=== PATIENT | female | born 2005 | race Caucasian/White ===

== ENCOUNTER 2023-12-10 18:04 | Observation (INO) | payer BC ==
[~2023-12-10] VITALS: Ht 152.4 cm; Wt 45.4 kg
[2023-12-10] MEDS ORDERED: ONDANSETRON 4MG 2ML VIAL IV ONE (20:05)
[2023-12-10] MEDS: ONDANSETRON 4MG 2ML VIAL IV ONE ×2 (20:31→22:01)
[2023-12-10] MEDS: NS 1,000 ML IV ONE (20:31)
[2023-12-10 20:47] LABS: BASO % 0.1 % (0.0-1.0); HEMATOCRIT 43.5 % (36.0-47.0); HEMOGLOBIN 15.6 g/dl (12.0-15.5); LYMPH # 0.7 10^3/uL (1.5-5.0); LYMPH % 4.6 % (24.0-44.0); MEAN CORPUSCULAR HEMOGLOBIN 29.7 pg (27.0-33.0); MEAN CORPUSCULAR HGB CONC 35.9 g/dl (32.0-36.5); MEAN CORPUSCULAR VOLUME 82.9 fl (80.0-96.0); MONO # 0.6 10^3/uL (0.0-0.8); MONO % 3.9 % (2.0-8.0); NEUTROPHILS # 13.9 10^3/uL (1.5-8.5); NEUTROPHILS % 90.9 % (36.0-66.0); PLATELET COUNT, AUTOMATED 328 10^3/uL (150-450); RED BLOOD COUNT 5.25 10^6/uL (4.00-5.40); WHITE BLOOD COUNT 15.3 10^3/uL (4.0-10.0)
[2023-12-10 21:26] LABS: HCG, SERUM QUALITATIVE NEGATIVE (NEGATIVE)
[2023-12-10 21:39] LABS: LIPASE 22 U/L (12-53)
[2023-12-10 21:41] LABS: ALBUMIN 5.2 G/DL (3.2-5.2); ALKALINE PHOSPHATASE 105 U/L (46-116); ALT/SGPT 64 U/L (7.0-40); AST/SGOT 48 U/L (<34); BILIRUBIN,DIRECT 0.6 MG/DL (<0.4); BILIRUBIN,TOTAL 1.8 MG/DL (0.3-1.2); BLOOD UREA NITROGEN 16 MG/DL (9-23); CALCIUM LEVEL 10.9 MG/DL (8.5-10.1); CARBON DIOXIDE LEVEL 24 MMOL/L (20-31); CHLORIDE LEVEL 103 MMOL/L (98-107); GLUCOSE, FASTING 134 MG/DL (60-100); POTASSIUM SERUM 4.1 MMOL/L (3.5-5.1); SODIUM LEVEL 141 MMOL/L (136-145); TOTAL PROTEIN 8.2 G/DL (5.7-8.2)
[2023-12-10] MEDS ORDERED: ISOVUE-370 76% 100ML VIAL As Ordered ONE (21:57)
[2023-12-10] MEDS: KETOROLAC 30 MG/ML 1ML VIAL IV ONE (22:01)
[2023-12-10] MEDS ORDERED: HOME MED LIST COMPLETE! XX SCH (23:30)
[2023-12-10] MEDS: PROMETHAZINE 25MG/ML 1ML VIAL IV ONE (23:31)
[2023-12-11] MEDS ORDERED: ACETAMINOPHEN TAB 650MG DOSE (2X325MG) PO PRN (02:55)
[2023-12-11] MEDS ORDERED: KETOROLAC 30 MG/ML 1ML VIAL IV PRN (02:55)
[2023-12-11] MEDS: LR 1,000 ML IV SCH (04:26)
[2023-12-11 04:27] VITALS: BP 130/72; TEMP 98; O2SAT 98
[2023-12-11] MEDS: MAALOX 30 ML SUSP *UDC PO PRN (05:06)
[2023-12-11] MEDS: ONDANSETRON 4MG 2ML VIAL IV PRN (05:06)
[2023-12-11 07:36] VITALS: BP 140/71; TEMP 98; O2SAT 100
[2023-12-11 08:29] LABS: BASO % 0.1 % (0.0-1.0); HEMATOCRIT 41.5 % (36.0-47.0); HEMOGLOBIN 14.4 g/dl (12.0-15.5); LYMPH # 1.1 10^3/uL (1.5-5.0); MEAN CORPUSCULAR HEMOGLOBIN 29.3 pg (27.0-33.0); MEAN CORPUSCULAR HGB CONC 34.7 g/dl (32.0-36.5); MEAN CORPUSCULAR VOLUME 84.3 fl (80.0-96.0); MONO % 8.1 % (2.0-8.0); NEUTROPHILS # 10.1 10^3/uL (1.5-8.5); NEUTROPHILS % 82.5 % (36.0-66.0); PLATELET COUNT, AUTOMATED 312 10^3/uL (150-450); RED BLOOD COUNT 4.92 10^6/uL (4.00-5.40); WHITE BLOOD COUNT 12.2 10^3/uL (4.0-10.0)
[2023-12-11 09:00] LABS: ALBUMIN 4.9 G/DL (3.2-5.2); ALKALINE PHOSPHATASE 92 U/L (46-116); ALT/SGPT 49 U/L (7.0-40); AST/SGOT 32 U/L (<34); BILIRUBIN,TOTAL 1.6 MG/DL (0.3-1.2); BLOOD UREA NITROGEN 16 MG/DL (9-23); CALCIUM LEVEL 10.3 MG/DL (8.5-10.1); CARBON DIOXIDE LEVEL 24 MMOL/L (20-31); CHLORIDE LEVEL 104 MMOL/L (98-107); CREATININE FOR GFR 0.81 MG/DL (0.55-1.30); GLUCOSE, FASTING 110 MG/DL (60-100); MAGNESIUM LEVEL 2.2 MG/DL (1.8-2.4); POTASSIUM SERUM 3.6 MMOL/L (3.5-5.1); SODIUM LEVEL 141 MMOL/L (136-145); TOTAL PROTEIN 7.6 G/DL (5.7-8.2)
[2023-12-11] MEDS: METOCLOPRAMIDE INJ 10MG/2ML VIAL IV PRN (09:06)
[2023-12-11] MEDS ORDERED: ONDA4TAB6 PO (12:10)
[2023-12-11 16:00] VITALS: BP 128/64; TEMP 97.6; O2SAT 100
== END 2023-12-11 16:38 | disposition home or self-care (01) ==
LOC: M ED 18:04 → M ED INP 18:05 → M PCU 12-11 04:25
PROVIDERS: ADMIT Internal Medicine; ATTEND Internal Medicine
DX: R11.2 Nausea with vomiting, unspecified (principal); R10.9 Unspecified abdominal pain; F99 Mental disorder, not otherwise specified; Z62.810 Personal history of physical and sexual abuse in childhood; F17.290 Nicotine dependence, other tobacco product, uncomplicated; F12.10 Cannabis abuse, uncomplicated
CPT/HCPCS: 36415; 74177; 80048; 80053; 80076; 83690; 83735; 84703; 85025; 93041; 96361; 96374; 96375; 96376; 99285; J1885; J2405; J2550; J2765; Q9967

== ENCOUNTER 2023-12-13 11:44 | Emergency (ER) | payer BC, SELFPAY ==
[~2023-12-13] VITALS: Ht 152.4 cm; Wt 45.4 kg
[~2023-12-13 11:44] MED LIST: ONDA4TAB6 PO
[2023-12-13 13:35] LABS: BASO % 0.3 % (0.0-1.0); HEMATOCRIT 44.6 % (36.0-47.0); HEMOGLOBIN 15.8 g/dl (12.0-15.5); LYMPH # 1.7 10^3/uL (1.5-5.0); LYMPH % 14.5 % (24.0-44.0); MEAN CORPUSCULAR HEMOGLOBIN 29.4 pg (27.0-33.0); MEAN CORPUSCULAR HGB CONC 35.4 g/dl (32.0-36.5); MEAN CORPUSCULAR VOLUME 83.1 fl (80.0-96.0); MONO # 1.1 10^3/uL (0.0-0.8); MONO % 9.6 % (2.0-8.0); NEUTROPHILS # 8.7 10^3/uL (1.5-8.5); NEUTROPHILS % 75.3 % (36.0-66.0); PLATELET COUNT, AUTOMATED 309 10^3/uL (150-450); RED BLOOD COUNT 5.37 10^6/uL (4.00-5.40); WHITE BLOOD COUNT 11.5 10^3/uL (4.0-10.0)
[2023-12-13] MEDS: NS 1,000 ML IV ONE (13:54)
[2023-12-13] MEDS: ONDANSETRON 4MG 2ML VIAL IV ONE (13:55)
[2023-12-13] MEDS: KETOROLAC 30 MG/ML 1ML VIAL IV ONE (13:57)
[2023-12-13] MEDS: FAMOTIDINE 20MG/2ML VIAL IVP ONE (13:58)
[2023-12-13 14:09] LABS: ALBUMIN 5.2 G/DL (3.2-5.2); BILIRUBIN,DIRECT 0.9 MG/DL (<0.4); BILIRUBIN,TOTAL 3.2 MG/DL (0.3-1.2); TOTAL PROTEIN 8.1 G/DL (5.7-8.2)
[2023-12-13] MEDS ORDERED: ISOVUE-370 76% 100ML VIAL As Ordered ONE (14:39)
[2023-12-13 18:07] VITALS: BP 129/73; TEMP 97.8; O2SAT 98
== END 2023-12-13 18:12 | disposition left against medical advice (07) ==
LOC: M ED 11:44
DX: R10.9 Unspecified abdominal pain (principal); F17.210 Nicotine dependence, cigarettes, uncomplicated; Z53.9 Procedure and treatment not carried out, unspecified reason
CPT/HCPCS: 74177; 74181; 80047; 80076; 83690; 84702; 85025; 96361; 96374; 96375; 99284; J1885; J2405; Q9967; S0028

== ENCOUNTER 2024-01-26 19:39 | Emergency (ER) | payer SELFPAY ==
[~2024-01-26] VITALS: Ht 152.4 cm; Wt 41.7 kg
[2024-01-26 19:39] VITALS: TEMP 97.9
[~2024-01-26 19:39] MED LIST changes: +ONDA-282 PO; -ONDA4TAB6 PO
[2024-01-26 20:36] LABS: BASO % 0.1 % (0.0-1.0); HEMATOCRIT 43.6 % (36.0-47.0); HEMOGLOBIN 15.4 g/dl (12.0-15.5); LYMPH % 13.4 % (24.0-44.0); MEAN CORPUSCULAR HEMOGLOBIN 29.5 pg (27.0-33.0); MEAN CORPUSCULAR HGB CONC 35.3 g/dl (32.0-36.5); MEAN CORPUSCULAR VOLUME 83.5 fl (80.0-96.0); MONO # 0.8 10^3/uL (0.0-0.8); MONO % 10.7 % (2.0-8.0); NEUTROPHILS # 5.9 10^3/uL (1.5-8.5); NEUTROPHILS % 75.7 % (36.0-66.0); PLATELET COUNT, AUTOMATED 315 10^3/uL (150-450); RED BLOOD COUNT 5.22 10^6/uL (4.00-5.40); WHITE BLOOD COUNT 7.8 10^3/uL (4.0-10.0)
[2024-01-26 20:58] LABS: ALBUMIN 4.5 G/DL (3.2-5.2); BILIRUBIN,DIRECT 0.7 MG/DL (<0.4); BILIRUBIN,TOTAL 2.8 MG/DL (0.3-1.2); TOTAL PROTEIN 7.3 G/DL (5.7-8.2)
[2024-01-26 21:00] VITALS: BP 115/72
[2024-01-26] MEDS: FAMOTIDINE 20MG/2ML VIAL IVP ONE (21:35)
[2024-01-26] MEDS: KETOROLAC 30 MG/ML 1ML VIAL IV ONE (21:35)
[2024-01-26] MEDS ORDERED: ISOVUE-370 76% 100ML VIAL As Ordered ONE (21:35)
[2024-01-26] MEDS: ONDANSETRON 4MG 2ML VIAL IV ONE (21:46)
[2024-01-26 21:59] LABS: AMPHETAMINES LEVEL URINE NEGATIVE (NEGATIVE); BARBITURATES URINE NEGATIVE (NEGATIVE); BENZODIAZEPINES URINE NEGATIVE (NEGATIVE); COCAINE METABOLITE URINE NEGATIVE (NEGATIVE); METHADONE URINE NEGATIVE (NEGATIVE); OPIATES URINE NEGATIVE (NEGATIVE); PHENCYCLIDINE URINE NEGATIVE (NEGATIVE)
[2024-01-26 22:01] LABS: CANNABINOIDS URINE POSITIVE (NEGATIVE)
[2024-01-26] MEDS ORDERED: ANALGESIC BALM CRM 3OZ TOP PRN (22:05)
[2024-01-26] MEDS: HALOPERIDOL LACTATE 5MG/ML VIAL IV ONE (22:18)
[2024-01-26 22:54] VITALS: O2SAT 98
== END 2024-01-26 23:10 | disposition left against medical advice (07) ==
LOC: M ED 19:39
DX: F12.188 Cannabis abuse with other cannabis-induced disorder (principal); Z53.9 Procedure and treatment not carried out, unspecified reason
CPT/HCPCS: 74177; 80047; 80076; 80307; 81001; 83690; 84702; 85025; 87086; 96374; 96375; 99284; J1630; J1885; J2405; Q9967; S0028

== ENCOUNTER 2024-02-14 18:03 | Emergency (ER) | payer SELFPAY ==
[~2024-02-14] VITALS: Ht 152.4 cm; Wt 41.4 kg
[2024-02-14 18:59] LABS: BASO % 0.4 % (0.0-1.0); EOS # 0.2 10^3/uL (0.0-0.5); EOS % 1.8 % (0.0-3.0); HEMATOCRIT 47.4 % (36.0-47.0); HEMOGLOBIN 16.9 g/dl (12.0-15.5); LYMPH % 20.9 % (24.0-44.0); MEAN CORPUSCULAR HEMOGLOBIN 29.8 pg (27.0-33.0); MEAN CORPUSCULAR HGB CONC 35.7 g/dl (32.0-36.5); MEAN CORPUSCULAR VOLUME 83.5 fl (80.0-96.0); MONO # 1.1 10^3/uL (0.0-0.8); MONO % 11.7 % (2.0-8.0); NEUTROPHILS # 6.1 10^3/uL (1.5-8.5); PLATELET COUNT, AUTOMATED 392 10^3/uL (150-450); RED BLOOD COUNT 5.68 10^6/uL (4.00-5.40); WHITE BLOOD COUNT 9.3 10^3/uL (4.0-10.0)
[2024-02-14 19:20] LABS: ALBUMIN 4.7 G/DL (3.2-5.2); BILIRUBIN,DIRECT 0.6 MG/DL (<0.4); BILIRUBIN,TOTAL 2.8 MG/DL (0.3-1.2); TOTAL PROTEIN 8.1 G/DL (5.7-8.2)
[2024-02-14] MEDS ORDERED: ISOVUE-370 76% 100ML VIAL As Ordered ONE (19:33)
[2024-02-14] MEDS: KETOROLAC 30 MG/ML 1ML VIAL IV ONE (19:34)
[2024-02-14 21:46] VITALS: BP 126/85; TEMP 98.8; O2SAT 98
[2024-02-14] MEDS ORDERED: BACT800T5 PO (22:16)
[2024-02-14] MEDS: BACTRIM 160MG/800MG DS TAB PO ONE (22:23)
== END 2024-02-14 22:29 | disposition home or self-care (01) ==
LOC: M ED 18:03
DX: N39.0 Urinary tract infection, site not specified (principal); F17.210 Nicotine dependence, cigarettes, uncomplicated; F12.10 Cannabis abuse, uncomplicated; Z79.899 Other long term (current) drug therapy
CPT/HCPCS: 74177; 80047; 80076; 81001; 83690; 84702; 85025; 87086; 96374; 99284; J1885; Q9967

== ENCOUNTER 2024-05-27 10:56 | Emergency (ER) | payer SELFPAY ==
[~2024-05-27] VITALS: Ht 152.4 cm; Wt 48.7 kg
[~2024-05-27 10:56] MED LIST changes: +BACT800T5 PO
[2024-05-27] MEDS: HALOPERIDOL LACTATE 5MG/ML VIAL IV ONE (12:01)
[2024-05-27] MEDS: NS 1,000 ML IV ONE (12:01)
[2024-05-27 14:43] VITALS: BP 132/74; TEMP 98.2; O2SAT 97
== END 2024-05-27 14:44 | disposition home or self-care (01) ==
LOC: M ED 11:34
DX: F12.988 Cannabis use, unspecified with other cannabis-induced disorder (principal); F17.290 Nicotine dependence, other tobacco product, uncomplicated
CPT/HCPCS: 96361; 96374; 99284; J1630